=== PATIENT | male | born 1945 | race Caucasian/White ===

== ENCOUNTER 2023-05-26 08:09 | Inpatient (IN) | payer MEDICARE, OTHER ==
[~2023-05-26] VITALS: Ht 172.7 cm; Wt 100.7 kg
[2023-05-26] MEDS: ACETAMINOPHEN 325 MG TABLET PO ONE (09:00)
[2023-05-26] MEDS: GABAPENTIN 100 MG CAPSULE PO ONE (09:00)
[2023-05-26 09:41] LABS: BASOPHILS # (AUTO) 0.1 K/UL (0.0-0.2); BASOPHILS % (AUTO) 0.6 % (0.0-2.0); EOSINOPHILS # (AUTO) 0.4 K/uL (0.0-0.7); EOSINOPHILS % (AUTO) 5.2 % (0.0-7.0); HEMATOCRIT 43.1 % (36.7-47.1); HEMOGLOBIN 14.8 g/dL (12.5-16.3); LYMPHOCYTES # (AUTO) 2.2 K/uL (0.8-4.8); LYMPHOCYTES % (AUTO) 25.5 % (20.5-51.5); MEAN CORPUSCULAR HEMOGLOBIN 29.7 uug (23.8-33.4); MEAN CORPUSCULAR HGB CONC 34 g/dL (32.5-36.3); MEAN CORPUSCULAR VOLUME 86.3 fL (73.0-96.2); MONOCYTES # (AUTO) 0.6 K/uL (0.1-1.30); MONOCYTES % (AUTO) 7.5 % (0.0-11.0); NEUTROPHILS # (AUTO) 5.2 K/uL (1.8-8.9); NEUTROPHILS % (AUTO) 61.2 % (38.5-71.5); PLATELET COUNT (AUTO) 238 K/uL (152-348); RED BLOOD CELL COUNT(AUTO) 4.99 MIL/uL (4.06-5.63); RED CELL DISTRIBUTION WIDTH 14.2 % (12.1-16.2); WHITE BLOOD COUNT (AUTO) 8.5 K/uL (3.6-10.2)
[2023-05-26 09:43] LABS: *BILIRUBIN,URIN NEGATIVE (NEGATIVE); *BLOOD, URINE NEGATIVE (NEGATIVE); *CLARITY,URINE CLEAR (CLEAR); *COLOR,URINE YELLOW (YELLOW); *KETONES,URINE NEGATIVE (NEGATIVE); *PROTEIN,URINE NEGATIVE (NEGATIVE); *UROBILINOGEN,URINE 0.2 E.U./dl (NORMAL); LEUKOCYTE ESTERASE ,URINE NEGATIVE (NEGATIVE); NITRITE, URINE NEGATIVE (NEGATIVE); PH,URINE 5.5 (5.0-8.0); UGLUCOSE NEGATIVE (NEGATIVE)
[2023-05-26 09:51] LABS: DIFFERENTIAL COMMENT 1
[2023-05-26 10:00] LABS: CALCIUM 9.3 mg/dL (8.5-10.1); CARBON DIOXIDE 29 mmol/L (21-32); CREATININE 1.3 mg/dL (0.6-1.3); GLUCOSE 121 mg/dL (74-106); UREA NITROGEN, BLOOD 11 mg/dL (7-18)
[2023-05-26] MEDS: CEFAZOLIN 2 G in IV DEXTROSE 5% 100 ML IV ONE (10:00)
[2023-05-26] MEDS ORDERED: ACETAMINOPHEN ES 500 MG TABLET ONE (10:01)
[2023-05-26] MEDS ORDERED: LIDOCAINE HCL 1% 20 ML VIAL ONE (10:27)
[2023-05-26 10:31] LABS: SODIUM SERUM 137 mmol/L (136-145)
[2023-05-26 10:32] LABS: CHLORIDE 103 mmol/L (98-107); POTASSIUM 4.4 mmol/L (3.5-5.1)
[2023-05-26] MEDS ORDERED: FENTANYL CITRATE 100 MCG/2 ML AMPUL ONE (10:33)
[2023-05-26] MEDS ORDERED: FAMOTIDINE. 20 MG/2 ML VIAL IV ONE (10:34)
[2023-05-26] MEDS ORDERED: ROCURONIUM BROMIDE 50 MG/5 ML VIAL ONE (10:34)
[2023-05-26] MEDS ORDERED: MIDAZOLAM HCL 2 MG/2 ML VIAL ONE (10:34)
[2023-05-26] MEDS ORDERED: SEVOFLURANE 250 ML BOTTLE ONE (11:10)
[2023-05-26] MEDS: IV LACTATED RINGERS SOLUTION 1,000 ML IV PRN (14:00)
[2023-05-26 14:15] VITALS: BP 117/72; TEMP 97.5; O2SAT 96
[2023-05-26 14:30] VITALS: BP 113/72; O2SAT 94
[2023-05-26 14:45] VITALS: BP 114/75; O2SAT 96
[2023-05-26] MEDS: GABAPENTIN 100 MG CAPSULE PO SCH (15:00)
[2023-05-26] MEDS: ACETAMINOPHEN 325 MG TABLET PO SCH (15:00)
[2023-05-26] MEDS: CELECOXIB 200 MG CAPSULE PO SCH (15:00)
[2023-05-26 15:20] VITALS: BP 117/72; TEMP 97.5; O2SAT 95
[2023-05-26] MEDS ORDERED: REMEDY ESSENTIAL ZINC PASTE 113 GM TP PRN (16:00)
[2023-05-26] MEDS ORDERED: HYDROCODONE/APAP 5-325MG TABLET PO PRN (16:00)
[2023-05-26] MEDS ORDERED: MORPHINE SULFATE 4 MG/1 ML DISP.SYRIN IV PRN (16:00)
[2023-05-26] MEDS ORDERED: MAGNESIUM HYDROXIDE 30 ML LIQUID UDC PO PRN (16:00)
[2023-05-26] MEDS ORDERED: ONDANSETRON 4 MG/2 ML VIAL IV PRN (16:00)
[2023-05-26] MEDS ORDERED: IV NS 1000 ML 1,000 ML IV PRN (16:00)
[2023-05-26] MEDS ORDERED: ACETAMINOPHEN 325 MG TABLET PO PRN (16:00)
[2023-05-26] MEDS: ENOXAPARIN SODIUM 40 MG/0.4 ML DISP.SYRIN SQ SCH (16:15)
[2023-05-26 19:40] VITALS: BP 124/77; TEMP 98.3; O2SAT 95
[2023-05-26] MEDS: PIPERACILLIN SODIUM/TAZOBACTAM 3.375 G in IV DEXTROSE 5% 100 ML IV SCH (21:48)
[2023-05-26] MEDS ORDERED: PIPERACILLIN SODIUM/TAZOBACTAM 3.375 G in IV DEXTROSE 5% 50 ML IV SCH (22:00)
[2023-05-27 01:25] VITALS: O2SAT 95
[2023-05-27 05:00] VITALS: BP 110/64; TEMP 98.2; O2SAT 95
[2023-05-27 07:37] LABS: CARBON DIOXIDE 31 mmol/L (21-32); CHLORIDE 103 mmol/L (98-107); CHOLESTEROL 235 mg/dL (<200); CREATININE 1.5 mg/dL (0.6-1.3); GLUCOSE 119 mg/dL (74-106); HDL CHOLESTEROL 31 mg/dL (40-60); MAGNESIUM 1.5 mg/dL (1.8-2.4); PHOSPHOROUS 3.7 mg/dL (2.5-4.9); SODIUM SERUM 139 mmol/L (136-145); TRIGLYCERIDES 231 MG/DL (30-150); UREA NITROGEN, BLOOD 14 mg/dL (7-18)
[2023-05-27 07:39] LABS: BASOPHILS % (AUTO) 0.3 % (0.0-2.0); EOSINOPHILS # (AUTO) 0.4 K/uL (0.0-0.7); EOSINOPHILS % (AUTO) 3.3 % (0.0-7.0); HEMATOCRIT 38.7 % (36.7-47.1); HEMOGLOBIN 13.2 g/dL (12.5-16.3); LYMPHOCYTES # (AUTO) 1.7 K/uL (0.8-4.8); LYMPHOCYTES % (AUTO) 15.5 % (20.5-51.5); MEAN CORPUSCULAR HEMOGLOBIN 29.5 uug (23.8-33.4); MEAN CORPUSCULAR HGB CONC 34 g/dL (32.5-36.3); MEAN CORPUSCULAR VOLUME 86.3 fL (73.0-96.2); MONOCYTES # (AUTO) 0.9 K/uL (0.1-1.30); MONOCYTES % (AUTO) 8.5 % (0.0-11.0); NEUTROPHILS # (AUTO) 7.8 K/uL (1.8-8.9); NEUTROPHILS % (AUTO) 72.4 % (38.5-71.5); PLATELET COUNT (AUTO) 206 K/uL (152-348); RED BLOOD CELL COUNT(AUTO) 4.48 MIL/uL (4.06-5.63); RED CELL DISTRIBUTION WIDTH 13.9 % (12.1-16.2); WHITE BLOOD COUNT (AUTO) 10.7 K/uL (3.6-10.2)
[2023-05-27 07:41] LABS: THYROID STIMULATING HORMONE 1.782 mIU/mL (0.358-3.740)
[2023-05-27] MEDS: ENOXAPARIN SODIUM 40 MG/0.4 ML DISP.SYRIN SQ SCH (08:03)
[2023-05-27] MEDS: PANTOPRAZOLE SODIUM 40 MG VIAL IV SCH (08:07)
[2023-05-27 08:25] LABS: DIFFERENTIAL COMMENT 1
[2023-05-27] MEDS ORDERED: AMOX-430 PO (08:31)
[2023-05-27] MEDS ORDERED: CELE200C PO (08:31)
[2023-05-27] MEDS ORDERED: TAMS-3 PO (08:31)
[2023-05-27] MEDS ORDERED: ONDA4TAB5 PO (08:32)
[2023-05-27] MEDS ORDERED: HYDR-3972 PO (08:32)
[2023-05-27] MEDS: MAGNESIUM OXIDE 400 MG TABLET PO ONE (08:50)
[2023-05-27] MEDS ORDERED: PANTOPRAZOLE SODIUM 40 MG VIAL IV SCH (09:00)
[2023-05-27] MEDS ORDERED: TAMSULOSIN HCL 0.4 MG CAP.SR.24H PO SCH (21:00)
== END 2023-05-27 13:00 | disposition home or self-care (01) | DRG 419 ==
LOC: DS 08:09 → MEDSURG3 14:47
PROVIDERS: ADMIT Surgery; ATTEND Nurse Practitioner Acute Care
PROC: 0FT44ZZ Resection of Gallbladder, Percutaneous Endoscopic Approach (ICD-10-PCS; principal; 2023-05-26)
PROC: 0WQF0ZZ Repair Abdominal Wall, Open Approach (ICD-10-PCS; 2023-05-26)
PROC: 0DNU4ZZ Release Omentum, Percutaneous Endoscopic Approach (ICD-10-PCS; 2023-05-26)
DX: K80.10 Calculus of gallbladder with chronic cholecystitis without obstruction (principal); K42.9 Umbilical hernia without obstruction or gangrene; K66.0 Peritoneal adhesions (postprocedural) (postinfection); J44.9 Chronic obstructive pulmonary disease, unspecified; Z90.5 Acquired absence of kidney; Z85.528 Personal history of other malignant neoplasm of kidney; E78.5 Hyperlipidemia, unspecified; E66.9 Obesity, unspecified; Z68.33 Body mass index [BMI] 33.0-33.9, adult; Z83.3 Family history of diabetes mellitus; Z82.49 Family history of ischemic heart disease and other diseases of the circulatory system; Z80.3 Family history of malignant neoplasm of breast; E83.42 Hypomagnesemia; Z90.89 Acquired absence of other organs; I10 Essential (primary) hypertension; E78.00 Pure hypercholesterolemia, unspecified
CPT/HCPCS: 36415; 71045; 83735; 84100; 84443; 85025; 85610; 85730; A4663; A9150; C9113; G0378; J0690; J1650; J2250; J2543; J3010; J3490; J7120